=== PATIENT | male | born 1990 | race Caucasian/White ===

== ENCOUNTER 2021-05-26 13:41 | Emergency (ER) | payer OTHER ==
[2021-05-26 15:09] LABS: BASOPHIL 0.6 % (0-2); EOSINOPHIL 2.2 % (0-5); HGB 15.7 g/dl (13.2-18.0); LYMPHOCYTE 9.3 % (15-48); MCH 30.7 pg (25.0-31.0); MCHC 34.1 g/dL (32.0-36.0); MONOCYTE 6.5 % (0-12); NEUTROPHIL 81.1 % (41-80); NRBC 0; PLT 233 K/uL (150-400); RBC 5.11 M/uL (4.70-6.00); RDW 12.6 % (11.5-14.0); WBC 11.8 K/uL (4.0-10.5)
[2021-05-26 15:19] LABS: BUN/CREAT RATIO (CALC) 8.2 RATIO; CREATININE 0.98 mg/dL (0.67-1.17); POTASSIUM 4.2 mmol/L (3.5-5.1)
[2021-05-26 16:46] LABS: BILIRUBIN NEGATIVE (NEGATIVE); BLOOD NEGATIVE Ery/uL (NEGATIVE); CLARITY CLEAR (CLEAR); COLOR YELLOW (YELLOW); GLUCOSE (U) NORMAL (NORMAL); LEUKOCYTES NEGATIVE Leu/uL (NEGATIVE); NITRITE NEGATIVE (NEGATIVE); PROTEIN NEGATIVE (NEGATIVE); UROBILINOGEN 0.2 mg/dL (0.2-1.0)
[2021-05-26 16:52] LABS: AMPHETAMINES NEGATIVE (NEGATIVE); BARBITURATES NEGATIVE (NEGATIVE); ECSTASY (MDMA) NEGATIVE (NEGATIVE); MARIJUANA (THC) POSITIVE (NEGATIVE); METHADONE NEGATIVE (NEGATIVE); OPIATES NEGATIVE (NEGATIVE); OXYCODONE NEGATIVE (NEGATIVE)
[2021-05-26] MEDS ORDERED: AZITHROMYCIN250 MG PO (20:15)
[2021-05-26 20:25] LABS: LACTIC ACID 1.2 mmol/L (0.4-1.9)
[2021-05-30 16:08] LABS: CHLAMYDIA TRACHOMATIS, NAA Negative (Negative); NEISSERIA GONORRHOEAE, NAA Negative (Negative)
== END 2021-05-26 20:39 | disposition home or self-care (01) ==
LOC: FER 13:41
PROVIDERS: Nurse Practitioner Family
DX: J06.9 Acute upper respiratory infection, unspecified (principal); R06.2 Wheezing; R00.0 Tachycardia, unspecified; F41.9 Anxiety disorder, unspecified; E86.0 Dehydration; J45.909 Unspecified asthma, uncomplicated; F17.210 Nicotine dependence, cigarettes, uncomplicated; Z88.8 Allergy status to other drugs, medicaments and biological substances
CPT/HCPCS: 36415; 36600; 71046; 80048; 80305; 81003; 82803; 83605; 85025; 85379; 87040; 87491; 87591; 93005; 94664; J2060; J7030